=== PATIENT | female | born 1980 ===

== ENCOUNTER 2022-04-30 07:33 | Outpatient (CLI) | payer BC, SELFPAY | END 2022-04-30 07:34 | disposition home or self-care (01) | LOC: NFLDREF 05-07 09:27 | PROVIDERS: PCP Family Medicine; Referring Provider Family Medicine; Visit Provider Family Medicine | DX: Z00.00 Encounter for general adult medical examination without abnormal findings (principal); E55.9 Vitamin D deficiency, unspecified; R73.01 Impaired fasting glucose; E78.5 Hyperlipidemia, unspecified | CPT/HCPCS: 80053; 80061 ==

== ENCOUNTER 2022-05-05 13:20 | Outpatient (CLI) | payer BC, SELFPAY | END 2022-05-05 13:21 | disposition home or self-care (01) | LOC: NFLDREF 13:22 | PROVIDERS: PCP Family Medicine; Visit Provider Family Medicine | DX: Z01.419 Encounter for gynecological examination (general) (routine) without abnormal findings (principal); E66.9 Obesity, unspecified; L50.1 Idiopathic urticaria; R73.01 Impaired fasting glucose | CPT/HCPCS: 86705 ==

== ENCOUNTER 2022-07-01 13:40 | Outpatient (CLI) | payer BC, SELFPAY ==
--- NOTE | 2022-07-01 13:40 | CRLHL7_ITS ---
For Patients: As a result of the Century Cures Act, medical imaging exams and procedure reports are released immediately into your electronic medical record. You may view this report before your referring provider. If you have questions, please contact your health care provider. BILATERAL SCREENING MAMMOGRAM WITH COMPUTER-AIDED DETECTION AND TOMOSYNTHESIS TECHNIQUE: CC and MLO views were obtained. These mammographic images have been obtained using full-field digital technique. These mammographic images were interpreted with the benefit of computer-aided detection. Breast Tomosynthesis was used in this interpretation. COMPARISON FILM: 05/07/21, 03/18/20, 03/09/19. FINDINGS: The breasts are heterogeneously dense, which may obscure small masses IMPRESSION: There is no radiographic evidence for malignancy. ASSESSMENT: BI-RADS Category 1: Negative RECOMMENDATION: Routine screening mammogram in 1 year. A lay language report of this examination will be provided to the patient. Lawrence Llanos M.D. Diagnostic Radiologist [email or web address] [place]/Dictated by: Lawrence Llanos MD @ 07/02/2022 9:57:00 AM (Electronically Signed)
== END 2022-07-01 13:41 | disposition home or self-care (01) ==
LOC: MAMMO 13:41
PROVIDERS: PCP Family Medicine; Visit Provider Family Medicine
DX: Z12.31 Encounter for screening mammogram for malignant neoplasm of breast (principal); R92.2 Inconclusive mammogram
CPT/HCPCS: 77063; 77067

== ENCOUNTER 2023-01-12 09:03 | Outpatient (CLI) | payer BC, SELFPAY ==
--- NOTE | 2023-01-12 09:15 | CRLHL7_ITS ---
For Patients: As a result of the Century Cures Act, medical imaging exams and procedure reports are released immediately into your electronic medical record. You may view this report before your referring provider. If you have questions, please contact your health care provider. BILATERAL BREAST MRI WITHOUT AND WITH GADOLINIUM CLINICAL HISTORY: 42-year-old female with elevated risk of breast cancer due to strong family history. Mammographically dense breasts. INDICATION FOR BREAST MRI: Screening breast MRI in this high-risk woman. COMPARISON STUDIES: Mammogram 07/01/2022, no prior MRI is available for comparison. CONTRAST: 20 cc of Dotarem. TECHNIQUE: The patient was positioned prone using a breast coil. Multiple imaging sequences were obtained using 1-1.5 mm thick slices with no gap. The image sequences include T2-weighted STIR in the axial plane, T1-weighted nonfat-saturated gradient echo in the axial plane, pre- and post-contrast T1-weighted FLASH 3D with fat suppression in the axial plane, and T1-weighted FLASH high resolution 3D with fat suppression in the sagittal plane. Image post-processing was performed on a [employer] workstation. Complex 3D rendering including maximum intensity projections (MIPS) and volumetric renderings were obtained to optimize visualization of the extent of pathology and relationship to the nipple, skin, and chest wall. This aids in determining feasibility of breast conservation surgery. Subtraction, multiplanar reconstruction, mean curve determination, and angiogenesis mapping were also performed. The study was technically adequate. FINDINGS: Amount of Fibroglandular Tissue: Heterogeneous fibroglandular tissue. Breast Background Enhancement: Marked. RIGHT Breast: No suspicious areas of enhancement. LEFT Breast: No suspicious areas of enhancement. Lymph Nodes: No adenopathy. IMPRESSIONS AND RECOMMENDATIONS: Negative, there is no MRI evidence of malignancy. Continued annual screening mammography and as clinically indicated screening breast MRI. The mammogram and MRI should be offset by six-month intervals time. BI-RADS Category 1: Negative Dictated by Lara Velazquez MD @ 01/13/2023 2:37:56 PM /Dictated by: Lara Velazquez MD @ 01/13/2023 2:39:00 PM (Electronically Signed)
== END 2023-01-12 09:04 | disposition home or self-care (01) ==
LOC: MRI 09:04
PROVIDERS: PCP Family Medicine; Visit Provider Family Medicine
DX: Z12.39 Encounter for other screening for malignant neoplasm of breast (principal); Z91.89 Other specified personal risk factors, not elsewhere classified
CPT/HCPCS: 77049; A9575

== ENCOUNTER 2023-07-12 08:58 | Outpatient (CLI) | payer BC, SELFPAY | END 2023-07-12 08:59 | disposition home or self-care (01) | PROVIDERS: PCP Family Medicine; Visit Provider Physician Assistant | DX: Z01.419 Encounter for gynecological examination (general) (routine) without abnormal findings (principal); Z13.6 Encounter for screening for cardiovascular disorders; Z13.1 Encounter for screening for diabetes mellitus; Z13.29 Encounter for screening for other suspected endocrine disorder | CPT/HCPCS: 80061; 82947; 84443 ==

== ENCOUNTER 2023-10-06 11:18 | Outpatient (CLI) | payer BC, SELFPAY ==
--- NOTE | 2023-10-06 11:30 | CRLHL7_ITS ---
For Patients: As a result of the Century Cures Act, medical imaging exams and procedure reports are released immediately into your electronic medical record. You may view this report before your referring provider. If you have questions, please contact your health care provider. BILATERAL SCREENING MAMMOGRAM WITH COMPUTER-AIDED DETECTION AND TOMOSYNTHESIS TECHNIQUE: CC and MLO views were obtained. These mammographic images have been obtained using full-field digital technique. These mammographic images were interpreted with the benefit of computer-aided detection. Breast Tomosynthesis was used in this interpretation. COMPARISON FILM: 07/01/22, 05/07/21, 03/18/20. FINDINGS: The breasts are heterogeneously dense, which may obscure small masses IMPRESSION: There is no radiographic evidence for malignancy. ASSESSMENT: BI-RADS Category 1: Negative RECOMMENDATION: Routine screening mammogram in 1 year. A lay language report of this examination will be provided to the patient. Lawrence Llanos M.D. Diagnostic Radiologist [email or web address] [place]/Dictated by: Lawrence Llanos MD @ 10/06/2023 12:23:00 PM (Electronically Signed)
== END 2023-10-06 11:19 | disposition home or self-care (01) ==
LOC: MAMMO 11:19
PROVIDERS: PCP Family Medicine; Visit Provider Family Medicine
DX: Z12.31 Encounter for screening mammogram for malignant neoplasm of breast (principal); R92.2 Inconclusive mammogram
CPT/HCPCS: 77063; 77067